=== PATIENT | male | born 1995 | race Caucasian/White ===

== ENCOUNTER 2016-06-09 17:41 | Emergency (ER) | payer OTHER ==
[~2016-06-09] VITALS: Ht 190.5 cm; Wt 123.5 kg
[2016-06-09 20:29] LABS: BASOPHIL % 0.7 % (0-2); PLATELET COUNT 388 x10^3mcL (130-400); RED CELL DISTRIBUTION WIDTH 12.9 % (11.5-14.5)
[2016-06-09 20:40] LABS: CALCIUM 9.4 mg/dL (8.5-10.1); CARBON DIOXIDE 27.9 mmol/L (21-32); CHLORIDE SERUM 103 mmol/L (98-107); CREATININE SERUM 0.8 mg/dL (0.7-1.3); GFR1 > 60 mL/min; GLUCOSE SERUM 94 mg/dL (74-106); POTASSIUM SERUM 4.3 mmol/L (3.5-5.1); SODIUM SERUM 140 mmol/L (136-145)
[2016-06-09 20:44] LABS: ALBUMIN 4.1 g/dL (3.4-5.0); ALKALINE PHOSPHATASE 118 U/L (46-116); ALT/SGPT 124 U/L (16-63); AST/SGOT 70 U/L (15-37); BILIRUBIN TOTAL 0.36 mg/dL (0.20-1.00); CHOLESTEROL 175 mg/dL (<200); PHOSPHOROUS 3.1 mg/dL (2.5-4.9); URIC ACID 6.5 mg/dL (3.5-7.2)
[2016-06-09 20:45] LABS: HDL CHOLESTEROL 64 mg/dL (40-60); TOTAL PROTEIN, SERUM 8.3 g/dL (6.4-8.2)
[2016-06-09 21:35] VITALS: BP 146/87
== END 2016-06-09 21:35 | disposition home or self-care (01) ==
LOC: ED 17:41
PROVIDERS: Emergency Medicine
DX: F41.9 Anxiety disorder, unspecified (principal)
CPT/HCPCS: 83880; Q0092

== ENCOUNTER 2017-02-11 16:33 | Emergency (ER) | payer OTHER ==
[~2017-02-11] VITALS: Ht 190.5 cm; Wt 117.1 kg
[2017-02-11 16:40] VITALS: Ht 190.5 cm; Wt 117.1 kg
[2017-02-11 17:32] VITALS: BP 140/72
== END 2017-02-11 17:32 | disposition home or self-care (01) ==
LOC: ED 16:33
DX: F41.9 Anxiety disorder, unspecified (principal); F10.10 Alcohol abuse, uncomplicated; F17.210 Nicotine dependence, cigarettes, uncomplicated; Z71.6 Tobacco abuse counseling
CPT/HCPCS: 99406

== ENCOUNTER 2017-04-26 13:43 | Emergency (ER) | payer OTHER ==
[~2017-04-26] VITALS: Ht 190.5 cm; Wt 122.5 kg
[2017-04-26 14:16] VITALS: BP 146/100; Ht 190.5 cm; Wt 122.5 kg
== END 2017-04-26 15:20 | disposition left against medical advice (07) ==
LOC: ED 13:43
DX: Z53.21 Procedure and treatment not carried out due to patient leaving prior to being seen by health care provider (principal)

== ENCOUNTER 2017-05-05 22:50 | Emergency (ER) | payer OTHER ==
[~2017-05-05] VITALS: Ht 190.5 cm; Wt 124.7 kg
[2017-05-05 22:58] VITALS: Ht 190.5 cm; Wt 124.7 kg
[2017-05-05 23:37] LABS: BASOPHIL % 0.4 % (0-2); PLATELET COUNT 366 x10^3mcL (130-400); RED CELL DISTRIBUTION WIDTH 12.6 % (11.5-14.5)
[2017-05-05 23:39] LABS: microscopic required? YES; urine erythrocyte TRACE (NEGATIVE)
[2017-05-05 23:44] LABS: CARBON DIOXIDE 27.5 mmol/L (21-32); CHLORIDE SERUM 101 mmol/L (98-107); CREATININE SERUM 0.9 mg/dL (0.7-1.3); GFR1 > 60 mL/min; GLUCOSE SERUM 105 mg/dL (74-106); POTASSIUM SERUM 3.9 mmol/L (3.5-5.1); SODIUM SERUM 136 mmol/L (136-145)
[2017-05-05 23:48] LABS: ALBUMIN 3.8 g/dL (3.4-5.0); ALKALINE PHOSPHATASE 106 U/L (46-116); ALT/SGPT 32 U/L (16-63); AST/SGOT 20 U/L (15-37); BILIRUBIN TOTAL 0.25 mg/dL (0.20-1.00); LIPASE 76 IU/L (73-393); TOTAL PROTEIN, SERUM 7.9 g/dL (6.4-8.2)
[2017-05-06 02:19] VITALS: BP 140/90
== END 2017-05-06 02:19 | disposition home or self-care (01) ==
LOC: ED 22:50
PROVIDERS: Emergency Medicine
DX: R10.12 Left upper quadrant pain (principal); J45.909 Unspecified asthma, uncomplicated; R80.9 Proteinuria, unspecified; I10 Essential (primary) hypertension
CPT/HCPCS: 36415

== ENCOUNTER 2017-06-21 19:10 | Emergency (ER) | payer OTHER ==
[~2017-06-21] VITALS: Ht 190.5 cm; Wt 113.8 kg
[2017-06-21 19:27] VITALS: Ht 190.5 cm; Wt 113.8 kg
[2017-06-21 19:51] VITALS: BP 147/84
== END 2017-06-21 19:51 | disposition home or self-care (01) ==
LOC: ED 19:10
DX: H92.01 Otalgia, right ear (principal); I10 Essential (primary) hypertension; J45.909 Unspecified asthma, uncomplicated

== ENCOUNTER 2017-07-08 17:04 | Emergency (ER) | payer OTHER ==
[~2017-07-08] VITALS: Ht 190.5 cm; Wt 110.7 kg
[2017-07-08 17:14] VITALS: Ht 190.5 cm; Wt 110.7 kg
[2017-07-08 19:37] VITALS: BP 125/77
== END 2017-07-08 19:37 | disposition home or self-care (01) ==
LOC: ED 17:04
DX: R00.2 Palpitations (principal); F17.210 Nicotine dependence, cigarettes, uncomplicated; J45.909 Unspecified asthma, uncomplicated; F41.9 Anxiety disorder, unspecified
CPT/HCPCS: Q0092

== ENCOUNTER 2017-08-09 23:54 | Emergency (ER) | payer OTHER ==
[~2017-08-09] VITALS: Ht 193 cm; Wt 108.9 kg
[2017-08-10 00:25] VITALS: Ht 193 cm; Wt 108.9 kg
[2017-08-10 02:09] VITALS: BP 137/77
== END 2017-08-10 02:09 | disposition home or self-care (01) ==
LOC: ED 23:54
DX: R10.9 Unspecified abdominal pain (principal); R11.2 Nausea with vomiting, unspecified; R19.7 Diarrhea, unspecified

== ENCOUNTER 2017-08-11 12:05 | Emergency (ER) | payer OTHER ==
[~2017-08-11] VITALS: Ht 193 cm; Wt 108.0 kg
[2017-08-11 12:24] VITALS: Ht 193 cm; Wt 108.0 kg
[2017-08-11 13:07] VITALS: BP 138/86
== END 2017-08-11 13:05 | disposition home or self-care (01) ==
LOC: ED 12:05
DX: R10.9 Unspecified abdominal pain (principal)

== ENCOUNTER 2017-08-13 09:11 | Emergency (ER) | payer OTHER ==
[~2017-08-13] VITALS: Ht 182.9 cm; Wt 109.3 kg
[2017-08-13 09:29] VITALS: Ht 182.9 cm; Wt 109.3 kg
[2017-08-13 11:16] VITALS: BP 120/64
== END 2017-08-13 11:16 | disposition home or self-care (01) ==
LOC: ED 09:11
DX: J02.9 Acute pharyngitis, unspecified (principal); J45.909 Unspecified asthma, uncomplicated; F41.9 Anxiety disorder, unspecified
CPT/HCPCS: J1885; Q0162

== ENCOUNTER 2017-08-16 10:41 | Emergency (ER) | payer OTHER ==
[~2017-08-16] VITALS: Ht 193 cm; Wt 107.0 kg
[2017-08-16 10:44] VITALS: Ht 193 cm; Wt 107.0 kg
[2017-08-16 11:25] VITALS: BP 120/64
== END 2017-08-16 11:35 | disposition home or self-care (01) ==
LOC: ED 10:41
DX: R06.02 Shortness of breath (principal); J45.909 Unspecified asthma, uncomplicated; Z87.891 Personal history of nicotine dependence
CPT/HCPCS: J7613; J7644

== ENCOUNTER 2017-11-19 15:49 | Emergency (ER) | payer OTHER ==
[~2017-11-19] VITALS: Ht 190.5 cm; Wt 117.0 kg
[2017-11-19 16:11] VITALS: Ht 190.5 cm; Wt 117.0 kg
[2017-11-19 18:53] VITALS: BP 139/76
== END 2017-11-19 18:53 | disposition home or self-care (01) ==
LOC: ED 15:49
DX: S90.561A Insect bite (nonvenomous), right ankle, initial encounter (principal); L03.115 Cellulitis of right lower limb; J45.909 Unspecified asthma, uncomplicated; F41.9 Anxiety disorder, unspecified; W57.XXXA Bitten or stung by nonvenomous insect and other nonvenomous arthropods, initial encounter; Y93.89 Activity, other specified; Y92.89 Other specified places as the place of occurrence of the external cause; Y99.8 Other external cause status
CPT/HCPCS: J7512

== ENCOUNTER 2018-04-07 19:38 | Emergency (ER) | payer OTHER ==
[~2018-04-07] VITALS: Ht 180.3 cm; Wt 106.6 kg
[2018-04-07 20:22] VITALS: Ht 180.3 cm; Wt 106.6 kg
[2018-04-07 20:52] VITALS: BP 155/94
== END 2018-04-07 21:14 | disposition home or self-care (01) ==
LOC: ED 19:38
DX: I10 Essential (primary) hypertension (principal); G89.29 Other chronic pain; J45.909 Unspecified asthma, uncomplicated; F41.9 Anxiety disorder, unspecified; M79.10 Myalgia, unspecified site